=== PATIENT | male | born 1975 | race Caucasian/White ===

== ENCOUNTER → 2017-07-04 | Outpatient (CLI) | payer BC | END | disposition home or self-care (01) | LOC: LABMAIN 07:18 | PROVIDERS: ATTEND Family Medicine | DX: E66.09 Other obesity due to excess calories (principal); R53.83 Other fatigue | CPT/HCPCS: 36415; 84402; 84403; 84443 ==

== ENCOUNTER 2021-10-29 20:12 | Emergency (ER) | payer BC, OTHER ==
[2021-10-29 20:26] VITALS: RESP 18; TEMP 98.6
[2021-10-29] MEDS ORDERED: KETOROLAC 15 MG/ML 1 ML VIAL IM STA (20:50)
--- NOTE | 2021-10-29 21:01 | ED ---
General Adult HPI - General Chief complaint: Fall Stated complaint: Fall, Rib injury Time Seen by Provider: 10/29/21 20:28 Source: patient Mode of arrival: ambulatory Limitations: no limitations - History of Present Illness Initial comments: 46 year old male presents to the emergency room for a chief complaint of left rib pain. Patient tripped over a 4 x 4 that was sticking out of the ground and fell with his elbow pressed against the left side of his ribs. Patient states it hurts with twisting movement and pressing on the area. States it hurts to cough. Patient wants to make sure it is not broken. Patient did not hit his head. He does not take blood thinners. He denies any abdominal pain.Patient has no other complaints at this time including shortness of breath, chest pain, abdominal pain, nausea or vomiting, headache, or visual changes. - Related Data Allergies Allergy/AdvReac Type Severity Reaction Status Date / Time No Known Allergies Allergy Verified 10/29/21 20:26 Review of Systems ROS Statement: Those systems with pertinent positive or pertinent negative responses have been documented in the HPI. ROS Other: All systems not noted in ROS Statement are negative. Past Medical History Additional Past Medical History / Comment(s): chronic back pain History of Any Multi-Drug Resistant Organisms: None Reported Past Surgical History: Cholecystectomy Past Psychological History: No Psychological Hx Reported Smoking Status: Never smoker Past Alcohol Use History: None Reported Past Drug Use History: None Reported General Exam Limitations: no limitations General appearance: alert, in no apparent distress Head exam: Present: atraumatic Eye exam: Present: normal appearance, PERRL, EOMI. Absent: scleral icterus, conjunctival injection ENT exam: Present: normal exam, mucous membranes moist Neck exam: Present: normal inspection, full ROM. Absent: tenderness Respiratory exam: Present: normal lung sounds bilaterally, chest wall tenderness (Patient has left-sided lateral chest wall tenderness around rib 8. There is no ecchymosis. No tenting). Absent: respiratory distress, wheezes Cardiovascular Exam: Present: regular rate, normal rhythm, normal heart sounds GI/Abdominal exam: Present: soft, normal bowel sounds. Absent: distended, tenderness (No abdominal tenderness or ecchymosis), guarding, rebound, rigid Course Vital Signs 10/29/21 20:21 Temperature 98.6 F Pulse Rate 84 Respiratory 18 Rate Blood Pressure 146/85 O2 Sat by Pulse 99 Oximetry Medical Decision Making - Medical Decision Making vitals are stable. HPI and physical exam as documented. X-ray of the left ribs and chest shows no displaced fractures. At this time patient him be discharged home with outpatient follow-up. Patient does have [place] at home that he can take. He will return here for any worsening symptoms. Disposition Clinical Impression: Contusion of rib on left side Disposition: HOME SELF-CARE Condition: Good Instructions (If sedation given, give patient instructions): Rib Contusion (ED) Additional Instructions: Take your norco for pain. Please follow up with your doctor in 1-2 days. Return to the ER for any worsening symptoms. Is patient prescribed a controlled substance at d/c from ED?: No Referrals: Channing Jordan III, MD [Primary Care Provider] - 1-2 days Time of Disposition: 21:28
--- NOTE | 2021-10-29 21:11 | XR ---
EXAMINATION TYPE: XR ribs LT w pa chest xray DATE OF EXAM: 10/29/2021 COMPARISON: NONE HISTORY: Rib pain TECHNIQUE: 5 views FINDINGS: Heart and mediastinum are within normal limits. Lungs are clear of consolidation. There are no hilar masses. There is no pleural effusion or pneumothorax. There is no evidence of rib fracture. IMPRESSION: Negative left rib exam. Normal chest.
[2021-10-29 21:34] VITALS: BP 142/82; PULSE 86
== END 2021-10-29 21:45 | disposition home or self-care (01) ==
LOC: EC 20:12
DX: S20.212A Contusion of left front wall of thorax, initial encounter (principal); Z90.49 Acquired absence of other specified parts of digestive tract; W01.0XXA Fall on same level from slipping, tripping and stumbling without subsequent striking against object, initial encounter
CPT/HCPCS: 99283; 96372; 71101; J1885

== ENCOUNTER → 2023-07-29 | Outpatient (CLI) | payer OTHER ==
--- NOTE | 2023-07-29 16:38 | P.SLEEP ---
History of Present Illness DATE: 07/29/2023 CONSULTATION/NEW PATIENT EVALUATION HISTORY OF PRESENT ILLNESS/SLEEP-WAKE EVALUATION: 48 year old gentleman had been evaluated in the sleep center for possible obstructive sleep apnea hypopnea syndrome. SLEEP SCHEDULE: Usually sleep schedule from 7:30 PM to 4:30 AM 7 days a week. FALLING ASLEEP: No problems with falling asleep. DURING SLEEP: Patient usually sleeps on the side position with snoring and episodes of stop breathing during the sleep witnessed by his . Positive history of awakenings was choking, dry mouth, heartburn, gasping for air, sweating, sleep talking. No history of hypnogogical hallucinations, sleep paralysis, or cataplexy. DURING THE DAY/WAKE STATE: In the morning patient wake up tired. [place] sleepiness scale is 10, which indicates sleepiness. Usually patient doesn't take naps. PAST MEDICAL HISTORY: Back problems. PAST SURGICAL HISTORY: Cholecystectomy. MEDICATIONS: [place]. SOCIAL HISTORY: Negative for smoking, alcohol consumption occasional. FAMILY HISTORY: Mostly negative. REVIEW OF SYSTEMS: Snoring, multiple awakenings from sleep. No fevers. No double vision. No recent chest pain. No shortness of breath. No abdominal pain. No bleeding episodes. No blood in urine. No seizure episodes. PHYSICAL EXAMINATION: GENERAL: A pleasant patient without any distress. VITAL SIGNS: BP 134/90 , HR 76 , RR 16 , weight 319.2 pounds, height 5 foot 10.5 inches, body mass index 45.1 . HEENT: PERRLA, EOMI. Evaluation of oropharynx showed tongue protrudes midline, low position of soft palate Mallampati 4. NECK: Supple. No JVD. Thyroid is not palpable. 19 inches in circumference. LUNGS: Clear to percussion and to auscultation. Good air exchange. No wheezing or rhonchi. HEART: S1, S2 regular. No murmurs, gallops or rubs. ABDOMEN: Soft and nontender. Bowel sounds are present. No organomegaly appreciated. EXTREMITIES: No clubbing or cyanosis. SOFTWARE TEST DEVELOPER: Awake, alert, and oriented x3. Cranial nerves 2 to 7 intact. There is no fasciculation or atrophy noted. No focal deficits observed. ASSESSMENT: 1. Snoring, multiple awakenings from sleep, witnessed episodes of stop breathing during the sleep, extremely low position of soft palate Mallampati 4, wide neck 19 inches in circumference, sleepiness [place] Sleepiness Scale is 10. Obstructive sleep apnea hypopnea syndrome. 2. Obesity, BMI 45.1. 3. Back problems. 4. Status post cholecystectomy. PLAN: 1. Polysomnography for evaluation of patient's breathing during sleep. 2. CPAP/BiPAP titration if sleep study confirms obstructive sleep apnea- hypopnea syndrome. 3. Preferable position during sleep on the side. 4. No driving if patient feels any sleepiness. Patient is aware of civil and criminal liability for unsafe driving. 5. Sleep hygiene with regular sleep time for at least 7.5-8 hours. 6. Watching and losing weight. Thank you very much for referring this patient for consultation. Sincerely, Ramu Jamison MD, PhD, FAASM. Diplomat of [place], Sleep Medicine Board by [employer] Person of [facility] [place] Past Medical History Additional Past Medical History / Comment(s): chronic back pain History of Any Multi-Drug Resistant Organisms: None Reported Past Surgical History: Cholecystectomy Past Psychological History: No Psychological Hx Reported Smoking Status: Never smoker Past Alcohol Use History: None Reported Past Drug Use History: None Reported Medications and Allergies Allergies Allergy/AdvReac Type Severity Reaction Status Date / Time No Known Allergies Allergy Verified 10/29/21 20:26 Sleep Note - Sleep Note Sleep Note: Temperature: Pulse Rate: Respiratory Rate: Blood Pressure: SpO2: Height: Weight: BMI: Neck Circumference:
== END ==
LOC: 3 N SLEEP 15:27
PROVIDERS: ATTEND Internal Medicine
DX: G47.33 Obstructive sleep apnea (adult) (pediatric) (principal); M51.9 Unspecified thoracic, thoracolumbar and lumbosacral intervertebral disc disorder; G89.29 Other chronic pain; E66.9 Obesity, unspecified; Z98.890 Other specified postprocedural states; Z68.42 Body mass index [BMI] 45.0-49.9, adult
CPT/HCPCS: 99211

== ENCOUNTER → 2023-09-11 | Outpatient (CLI) | payer OTHER ==
--- NOTE | 2023-09-11 14:26 | MR ---
EXAMINATION TYPE: MR brain wo/w con DATE OF EXAM: 09/11/2023 COMPARISON: None HISTORY: Parosmia, Dysosmia, Everything smells and tastes bad x 3 months, CONTRAST: Performed utilizing 14.5 mL intravenous Gadavist gadolinium contrast. TECHNIQUE: Multiplanar, multiecho imaging on a 3.0 Lona magnet is performed through the brain. Stud y is performed within 24 hours of arrival to the hospital. The craniovertebral junction is normal. The pituitary is normal. Optic chiasm appears normal Cribriform plate and base of the frontal lobes appears normal. No abnormal signal is evident. Diffusion-weighted imaging is performed. No abnormal hyperintensity is present to suggest an acute i ntracranial infarct or acute ischemic change. Signal through the brain appears normal. Ventricles and sulci are appropriate for the patient age. Paranasal sinuses and mastoid air cells [id number] are clear. No abnormal enhancement is evident. IMPRESSION: 1. No acute intracranial process pre- and post- contrast MRI brain
== END | disposition home or self-care (01) ==
LOC: RADMRIMAIN 13:14
PROVIDERS: ATTEND Otolaryngology
DX: R43.1 Parosmia (principal)
CPT/HCPCS: 70553; A9585

== ENCOUNTER 2023-09-14 19:29 | Outpatient (CLI) | payer OTHER ==
--- NOTE | 2023-09-22 14:38 | P.PCN ---
Description of Procedure: POLYSOMNOGRAPHY REPORT PROCEDURE(S)/DATE(S): Polysomnography 09/14/2023 CLINICAL: Patient has been seen in the sleep center for evaluation of obstructive sleep apnea-hypopnea syndrome. Please see my consultation. Sleep study has been done for evaluation of patient breathing during the sleep. PROCEDURE: The standard montage for clinical polysomnography included the electroencephalogram, the electrooculogram, the mentalis surface electromyography and Lead II cardiography. The respiratory battery consisted of measurements of nasal/buccal air flow, pressure transducer measurements from nose, thoracic and/or abdominal effort and intercostal surface electromyography. Video monitoring has been done to check for any parasomnia events. Nocturnal oxyhemoglobin saturations were obtained by finger oximetry. Step-romano titration with positive airway pressure was utilized to control the respiratory events, if necessary. RESULTS: During the diagnostic sleep study sleep efficiency was normal 93.9 %. Latency to sleep onset was normal 10.5 min. Sleep architecture showed stage NI was extremely high 32.8 %, Delta sleep was extremely short 0.1 %, REM sleep was short 7.2 %. Respiratory channel showed 9 obstructive apneas, 5 mixed apneas, 8 central apneas, 549 hypopneas with lowest oxygen level 67 %. Total apnea hypopnea index was 80.6. Heart rate was in the range between 57 and 77, average 67 by computer calculation. EMG showed 0 periodic limb movements per hour with 0 micro-arousals per hour. IMPRESSIONS: 1. Severe Obstructive sleep apnea hypopnea syndrome. 2. No significant periodic limb movements have been documented. Please see other impressions from consultation PLAN: 1. The patient will have PAP titration for correction of respiratory abnormalities during the sleep. 2. Losing weight program. 3. Sleep hygiene with regular time in bed for at least 7-1/2 hours. 4. No driving if feeling sleepiness. Thank you very much for allowing me to participate in the management of your patient. Sincerely, Ramu Jamison MD, PhD, FAASM. Diplomat of [employer], Sleep Medicine Board by [employer] Marketing Proposal Coordinator of [facility] [place]
== END 2023-09-15 05:25 | disposition home or self-care (01) ==
LOC: 3 N SLEEP 19:29
PROVIDERS: ATTEND Internal Medicine
DX: G47.33 Obstructive sleep apnea (adult) (pediatric) (principal); G47.61 Periodic limb movement disorder
CPT/HCPCS: 95810

== ENCOUNTER 2023-10-13 19:05 | Outpatient (CLI) | payer OTHER ==
--- NOTE | 2023-10-14 13:28 | P.PCN ---
Description of Procedure: CLINICAL: Titration with positive air pressure has been done for correction of respiratory abnormalities during sleep. DESCRIPTION OF PROCEDURE: The standard montage for clinical polysomnography included the electroencephalogram, the electrocardiogram, the mentalis surface electromyography and Lead II cardiography. The respiratory battery consisted of measurements of nasal /buccal air flow, pressure transducer measurements from the nose, thoracic and /or abdominal effort and intercostal surface electromyography. Video monitoring has been done to check for any parasomnia events. Nocturnal oxyhemoglobin saturations were obtained by finger oximetry. Step-romano titration with positive airway pressure was utilized to control respiratory events. Raw data of sleep recording has been reviewed and is adequate. RESULTS: Sleep efficiency was high 94.1 %. Latency to sleep onset was slightly short 9.0 minutes.]. Sleep architecture showed stage N1 was short 2.6 %, Delta sleep was normal 11.7 %, REM sleep was significantly increased to 38.0 %. Heart rate was minimum 63 BPM, maximum 75 BPM, average 68 BPM. EMG showed 0.5 periodic limb movements per hour. PAP titration have been done with CPAP up to the pressure 15 cm H2O. Patient continued to have abnormal respiration on CPAP, switched to BPAP. BPAP titrated up to 16/12 cm H2O. The best results were at the pressure 16/12 cm H2O. Apnea hypopnea index reduced to 2.1. IMPRESSION: 1. Obstructive sleep apnea hypopnea syndrome mostly on controle with BPAP treatment. 2. No significant periodic limb movements have been documented. Please see other impressions from consultation. PLAN: 1. The patient will have treatment with positive air pressure equipment with the level of pressure AutoBPA with maximal inspiratory pressure 17 and the minimal expiratory pressure 8, pressure-support 4 cm H2O and should use it every night for the whole night. 2. Watching and losing weight. 3. Sleep hygiene with regular time in bed for at least 8 hours. 4. No driving if feeling any sleepiness. 5. I will see the patient for follow up visit to explain the results of the test, recommendations, check compliance with treatment and make any necessary adjustment related to mask fitting, pressure and humidification. Thank you very much for allowing me to participate in the management of your patient. Sincerely, Ramu Jamison MD, PhD, FAASM Diplomat of [employer] Sleep Medicine Board of [employer] Medicine Wet Roller of [facility] [place]
== END 2023-10-14 05:12 | disposition home or self-care (01) ==
LOC: 3 N SLEEP 19:05
PROVIDERS: ATTEND Internal Medicine
DX: G47.33 Obstructive sleep apnea (adult) (pediatric) (principal); G47.61 Periodic limb movement disorder; Z99.89 Dependence on other enabling machines and devices
CPT/HCPCS: 95811

== ENCOUNTER → 2023-12-15 | Outpatient (CLI) | payer OTHER ==
--- NOTE | 2023-12-15 17:42 | P.PN ---
Subjective DATE: 12/15/2023 FOLLOW UP VISIT. Patient with obstructive sleep apnea hypopnea syndrome return to sleep center for follow-up visit. Recently patient had sleep study which documented obstructive sleep apnea hypopnea syndrome. Patient was initiated on PAP therapy and today is first visit after treatment was started. I explained the results of sleep studies to the patient in details. Patient was able to use BPAP equipment every night for the whole night. The patient does not have significant problems with the mask, BPAP pressure and humidification. [place] sleepiness scale is 4, which is normal. I checked information from PAP unit. BPAP unit pressure tomorrow inspiratory pressure 17, minimal expiratory pressure 8, pressure support 4 cm H2O. Usage is 97% and 93% for more then 4 hours, average 7.10 hours per night. Leak is 11.2 l/m, which is in acceptable range. Apnea Hypopnea Index is 1.5, which is normal. MEDICATIONS:1. [place] During physical exam: GENERAL: A pleasant patient without any distress. VITAL SIGNS: BP 128/86, HR 76, RR 16, weight 329, temperature 98.6, oxygen saturation at room air 99%. HEENT: PERRLA, EOMI.low position of soft palate, Mallapati 4. NECK: Supple. No JVD. LUNGS: Clear to percussion and to auscultation. Good air exchange. No wheezing or rhonchi. HEART: S1, S2 regular. ABDOMEN: Soft and nontender.[] EXTREMITIES: No clubbing or cyanosis. ON AIR DIRECTOR: Awake, alert, and oriented x3. No focal deficit. Impressions: 1. Obstructive sleep apnea-hypopnea syndrome in severe range. Original apnea- hypopnea index 80.6 with oxygen saturation to 67%. Patient demonstrated great compliance with treatment, benefiting from treatment, normal respiration on BPAP. 2. Obesity, patient increased weight on 10 pounds comparing with previous visit. 3. Back problems. 4. Status post cholecystectomy. Plan: 1. Continue using PAP equipment every night for the whole night. 2. To change air filter at least 1-2 times per month. 3. PAP unit should stay lower then position of the head. 4. Advised patient to remove all remaining water from humidifier canister daily and make it dry after each usage. Refill canister with fresh distilled water before each usage. 5. Sleep hygiene with regular time in bed for at least 8 hours. 6. Precautions related to driving. No driving if feel any sleepiness. 7. I will maintain prescription for PAP supplies including mask, tube, filters. 8. Follow up visit in 6 months or earlier if patient has any problems. 9. Watching weight. Thank you very much for allowing me to participate in the management of your patient. Ramu Jamison MD, PhD, FAASM. Diplomat of [employer], Sleep Medicine Board by [employer] Stained Glass Joiner of [facility] [place]
== END ==
LOC: 3 N SLEEP 15:46
PROVIDERS: ATTEND Internal Medicine
DX: G47.33 Obstructive sleep apnea (adult) (pediatric) (principal); E66.9 Obesity, unspecified; M54.50 Low back pain, unspecified; Z90.49 Acquired absence of other specified parts of digestive tract; Z99.89 Dependence on other enabling machines and devices
CPT/HCPCS: 99212